=== PATIENT | male | born 1970 | race Two or more races ===

== ENCOUNTER 2018-04-10 11:30 | Emergency (ER) | payer OTHER ==
[~2018-04-10] VITALS: Ht 162.6 cm; Wt 74.8 kg
[2018-04-10] MEDS ORDERED: LISINOPRIL5 MG ORAL (11:42)
[2018-04-10] MEDS ORDERED: SUMATRIPTAN SUC50 MG PO (11:42)
[2018-04-10] MEDS ORDERED: KAPSPARGO SPRIN25 MG PO (11:42)
[2018-04-10 11:55] VITALS: BP 154/95
--- NOTE | 2018-04-10 12:00 | NUR ---
ED Nurse Note: patient walked in by him self with steady gait, complaining of lower back pain 09/16. AAO x 4, skin is dry, intact, warm to touch. VSS at this time.
--- NOTE | 2018-04-10 12:15 | NUR ---
ED Nurse Note: patient went down for CT
[2018-04-10] MEDS ORDERED: NORCO 5-325 TA1 EACH ORAL (12:30)
[2018-04-10] MEDS ORDERED: IBUPROFEN600 MG ORAL (12:30)
--- NOTE | 2018-04-10 12:30 | NUR ---
ED Nurse Note: patient is back, no acute disstress noticed
[2018-04-10 12:42] VITALS: BP 130/75
--- NOTE | 2018-04-10 12:44 | NUR ---
ED Nurse Note: Pt cleared by health care Provider for discharge. DC instructions/prescription was given and explained to pt and verbalized understanding of teachings. All medical deviecs such as ID band removed. Pt is AAO x4, ambulatory and left with all personal belongings.
--- NOTE | 2018-04-10 13:48 | Emergency Room Report ---
History of Present Illness General Chief Complaint: Back Pain-No Injury Source: Patient Present Illness HPI Patient presents emergency department today complaint lower back pain. Patient states that he was at work and strained his lower back when he was moving a pot. He states the pain radiates down his left leg. He denies any dysuria urinary frequency perineal anesthesia. No complete or noted. Denies any other trauma. Symptoms noted moderate.No other modifying factors. No other associated signs and symptoms. No other complaints were noted. Allergies: Coded Allergies: No Known Allergies (Unverified , 04/10/18) Patient History Past Medical History: HTN Past Surgical History: none Pertinent Family History: none Social History: Denies: smoking, alcohol use, drug use Reviewed Nursing Documentation: PMH: Agreed; PSxH: Agreed Nursing Documentation-PMH Past Medical History: No History, Except For Hx Hypertension: Yes Review of Systems All Other Systems: negative except mentioned in HPI Physical Exam Vital Signs Date Time Temp Pulse Resp B/P (MAP) Pulse Ox O2 Delivery O2 Flow Rate FiO2 04/10/18 11:37 98.2 91 12 155/95 96 Room Air Sp02 EP Interpretation: reviewed, normal General Appearance: normal inspection, well appearing, no apparent distress, alert Head: atraumatic Eyes: bilateral eye normal inspection ENT: normal ENT inspection, hearing grossly normal, normal voice Neck: normal inspection, full range of motion, supple, no bony tend Respiratory: normal inspection, lungs clear, normal breath sounds, no respiratory distress, no retraction, no wheezing Cardiovascular #1: regular rate, rhythm, no edema Gastrointestinal: normal inspection, normal bowel sounds, non tender, soft, no guarding, no hernia Genitourinary: no CVA tenderness Musculoskeletal: normal inspection, back normal, normal range of motion, other - Tender left paraspinal lumbar area Neurologic: normal inspection, alert, responsive, speech normal Psychiatric: normal inspection, judgement/insight normal, mood/affect normal Skin: normal inspection, normal color, no rash Medical Decision Making Diagnostic Impression: Primary Impression: Back pain ER Course Patient presents emergency department today complaint lower back pain. Differential considerations include fracture dislocation versus strain. Since exam is fairly benign however given the injury on the work injury x-rays were obtained x-rays were negative. Patient was given a prescription for pain medication recommend light duty. Recommend outpatient follow-up with workers comp clinic.Patient is advised to follow up with primary doctor in 2-3 days and return the emergency room for any worsening symptoms and as needed. Other X-Ray Diagnostic Results Other X-Ray Diagnostic Results : # of Views/Limited Vs Complete: 3 View Indication: Pain EP Interpretation: No Impression: No acute disease Last Vital Signs Date Time Temp Pulse Resp B/P (MAP) Pulse Ox O2 Delivery O2 Flow Rate FiO2 04/10/18 12:42 98.0 78 16 130/75 100 Room Air Status: improved Disposition: HOME, SELF-CARE Condition: Stable Scripts Ibuprofen* (MOTRIN*) 600 Mg Tablet 600 MG ORAL Q8H PRN for For Pain, #20 TAB 0 Refills Prov: Cory Gunn MD 04/10/18 Hydrocodone Bit/Acetaminophen 5-325* (NORCO 5-325*) 1 Each Tablet 1 TAB ORAL Q6H PRN for For Pain, #20 TAB 0 Refills Prov: Cory Gunn MD 04/10/18 Departure Forms: Return to Work Return to Work Date: Apr 10, 2018 Other Restrictions: light duty Patient Instructions: Sciatica, Back Pain, Adult Cory Gunn MD Apr 10, 2018 13:48
--- NOTE | 2018-04-10 15:43 | Diagnostic Imaging Report ---
Indication: Back pain Technique: 3 views of the lumbar spine Comparison: None Findings: Bony alignment. Vertebral body heights are preserved. Disc spaces are preserved. The pedicles are intact. Sacral arches are preserved Impression:. No acute process This agrees with the preliminary interpretation provided by the emergency room physician
== END 2018-04-10 12:44 | disposition home or self-care (01) ==
LOC: EMR 12:20
DX: M54.5 Low back pain (principal); I10 Essential (primary) hypertension; X50.0XXA Overexertion from strenuous movement or load, initial encounter; Y92.511 Restaurant or cafe as the place of occurrence of the external cause; Y99.0 Civilian activity done for income or pay
CPT/HCPCS: 72020; 99283